=== PATIENT | male | born 1940 | race Caucasian/White ===

== ENCOUNTER 2025-03-21 09:57 | Emergency (ER) | payer BC, SELFPAY ==
[2025-03-21 10:02] VITALS: BP 194/112
[2025-03-21 10:30] VITALS: BP 179/103
[2025-03-21 10:35] VITALS: BMI 26.8
--- NOTE | 2025-03-21 10:35 | ED.GENMED ---
History of Present Illness
General
Chief Complaint: Abdominal Symptoms
Source: patient
Exam Limitations: none
Time Seen by Provider: 03/21/25 10:16
History of Present Illness
History of Present Illness:
84-year-old male presents with lower abdominal distention and discomfort with trouble urinating and lack of bowel movements. Has been getting worse over the past 4 days. He has a known enlarged prostate. No fevers or vomiting. No other
complaints at this time
Past History
Past History
ED Past Medical History: HTN
ED Past Surgical History: None
Social History
Tobacco: Non-smoker
Phy Exam
Physical Exam
Physical Exam:
General: Well-appearing male no acute respiratory distress
HEENT: Normal cephalic atraumatic
Heart: Regular rate and rhythm
Lungs: Clear no wheeze
Abdomen tender over the suprapubic area. Superior aspect of the bladder is felt at the umbilicus.
Extremities: No cyanosis
Course
Orders/Labs/Results
Orders:
Orders
03/21/25 10:18
Bladder Scan- Treatment ONCE
03/21/25 10:36
Charlton Placement- Treatment ONCE
Reason for insertion: Acute Retention
03/21/25 10:43
Lidocaine 2% [Lidocaine Uro-Jet 2%] 1 syringe .ROUTE .[facility]
03/21/25 11:08
Urinalysis Reflex To Culture Urgent
Date Specimen was Collected: 03/21/25
Time Specimen was Collected: 10:49
Urine Microscopic Reflex Cult Urgent
Abnormal Lab Results
03/21/25
11:08
Ur Occult Blood Reflex 3+ A
(Negative)
Urine RBC 26-30 A /HPF
(0-2)
Urine Albumin (Reflex) 1+ A
(Neg - Trace)
03/21/25 10:18
03/21/25 10:18
Vital Signs
Initial and Last Documented VS:
Initial Vital Signs
Temp Pulse Resp BP Pulse Ox
98.5 F 109 18 194/112 96
03/21/25 10:02 03/21/25 10:02 03/21/25 10:02 03/21/25 10:02 03/21/25 10:02
Last Documented Vital Signs
Temp Pulse Resp BP Pulse Ox
98.5 F 89 20 169/95 96
03/21/25 10:49 03/21/25 11:00 03/21/25 11:00 03/21/25 11:00 03/21/25 11:00
MDM/Problems Addressed
Differential Diagnosis Includes:
Patient with urinary symptoms inability to fully void and having trouble but having bowel movements. Bladder feels distended on exam. Bedside bladder scan demonstrates over a liter of urine in the bladder. Will recommend Charlton catheter placement
for acute urinary retention.
*Pulse Oximetry
SaO2: 96
Oxygen Mode of Delivery: Room air
Patient hypoxic: no
*Critical Care Note
Total Time (30-74mins, 75-104mins- exclusive of procedures): Not Applicable
Update Note
Update Note:
Patient feeling much better after Charlton catheter was placed. He drained over 1600 mL of urine out of the bladder. Urinalysis without infection. Catheter will remain until seen by urology. Stable for discharge
ED Attending Note
-
Portions of this chart may have been created with voice recognition software.� Occasional wrong word or��sound alike� substitutions may have occurred due to the inherent limitations of voice recognition software.
Discharge Plan
Departure
Patient Disposition: Home (Routine Discharge)
Date of Disposition: 03/21/25
Time of Disposition: 12:40
Patient with high blood pressure during this ER visit?: No
Discharge Problem:
Acute urinary retention
Instructions: How to Care for Your Charlton Catheter, Male
Prescriptions:
No Action
No Current Medications
0
Referrals:
Fernando García DO [Family Provider, Family Practice]
Jonah Cueva MD [Active, Urology]
Activity Restrictions/Additional Instructions:
Drain your catheter bag as needed. Follow-up with urology for next available appointment for further evaluation regarding the urinary retention
Interventions
Interventions:
*Risk Screen - Suicide Last Done: 03/21/25 10:02
*General Assessment Last Done: 03/21/25 10:02
*Neglect/Abuse Screening Last Done: 03/21/25 10:02
*ED- Fall Risk Assessment Last Done: 03/21/25 10:49
*ED COVID-19 Vaccine History Last Done: 03/21/25 10:49
HZ-Xsilvs-Pqcvnqsonm Assessment Last Done: 03/21/25 10:49
Discharge Date and Time
Print Language: SLOVENIAN
[2025-03-21 10:45] VITALS: BP 193/103
[2025-03-21 10:49] VITALS: BP 193/103
[2025-03-21 11:00] VITALS: BP 169/95
[2025-03-21 11:45] LABS: Urine Character Clear (Clear)
[2025-03-21 11:59] LABS: Urine Red Blood Cell 26-30 /HPF (0-2); Urine Squamous Cell 0-2 /LPF (Few)
[2025-03-21 12:00] VITALS: BP 172/98
[2025-03-21 12:01] LABS: Urine Urothelial Cell 0-2 /LPF (FEW)
== END 2025-03-21 13:11 | disposition home or self-care (01) ==
LOC: EMR 09:57
PROVIDERS: Physician Assistant; EMERGENCY PHYSICIAN Emergency Medicine; FAMILY PHYSICIAN Family Medicine
DX: R33.9 Retention of urine, unspecified (principal); N40.1 Benign prostatic hyperplasia with lower urinary tract symptoms; I10 Essential (primary) hypertension
CPT/HCPCS: 99282; 51702; 81003; 81015

== ENCOUNTER → 2025-04-14 15:51 | Outpatient (REF) | payer OTHER, SELFPAY | LOC: RAD 15:51 | PROVIDERS: ATTENDING PHYSICIAN Specialist; FAMILY PHYSICIAN Family Medicine | DX: R97.20 Elevated prostate specific antigen [PSA] (principal) | CPT/HCPCS: 74178; Q9967 ==

== ENCOUNTER → 2025-06-07 12:14 | Outpatient (REF) | payer OTHER, SELFPAY | LOC: PET 12:14 | PROVIDERS: ATTENDING PHYSICIAN Internal Medicine Hematology & Oncology | DX: C61 Malignant neoplasm of prostate (principal) | CPT/HCPCS: 78815; A9595 ==